=== PATIENT | female | born 1985 | race Caucasian/White ===

== ENCOUNTER 2021-07-08 20:08 | Emergency (ER) | payer MEDICAID, OTHER ==
[~2021-07-08] VITALS: Ht 160 cm; Wt 81.6 kg
[2021-07-08] MEDS: cloNIDine HCL 0.1 MG TAB PO ONE (20:29)
[2021-07-08 21:50] LABS: Basophils # (auto) 0.1 10 ^3/uL (0-0.2); Basophils % (auto) 1.2 % (0.0-2.0); Eosinophils # (auto) 0.1 10 ^3/uL (0-0.8); Eosinophils % (auto) 1.6 % (0.0-7.0); Hematocrit 44.2 % (36.0-46.0); Hemoglobin 14.2 g/dL (12.2-16.2); Lymphocytes # (auto) 2.9 10 ^3/uL (0.4-5.4); Lymphocytes % (auto) 32.9 % (10.0-50.0); Mean Corpuscular Hemoglobin 28.4 pg (28.0-32.0); Mean Corpuscular Hgb Conc. 32.2 g/dL (32.0-36.0); Mean Corpuscular Volume 88.2 fL (80.0-100.0); Monocytes # (auto) 0.8 10 ^3/uL (0-1.3); Monocytes % (auto) 8.7 % (0.0-12.0); Neutrophils # (auto) 4.9 10 ^3/uL (1.6-8.6); Neutrophils % (auto) 55.6 % (37.0-80.0); Nucleated Red Blood Cells % 0.1 %; Red Cell Distribution Width 15.4 % (11.8-14.3); White Blood Cell 8.7 10^3/uL (4.4-10.8)
[2021-07-08 22:27] LABS: BUN/Creatinine Ratio 15.3; Bilirubin, Total 0.2 mg/dL (0.2-1.0); Calcium 8.4 mg/dL (8.5-10.1); Potassium 3.7 mmol/L (3.5-5.1)
[2021-07-08 22:28] LABS: Albumin 3.4 g/dL (3.4-5.0); Magnesium 2.9 mg/dL (1.6-2.6); Total Protein 7.7 g/dL (6.4-8.2)
[2021-07-09 02:22] VITALS: BP 198/137
== END 2021-07-09 03:38 | disposition home or self-care (01) ==
LOC: ER 20:10
DX: I10 Essential (primary) hypertension (principal); R51.9 Headache, unspecified; F17.210 Nicotine dependence, cigarettes, uncomplicated; F12.10 Cannabis abuse, uncomplicated; F15.10 Other stimulant abuse, uncomplicated
CPT/HCPCS: 36415; 80053; 83735; 84484; 85025; 93005

== ENCOUNTER 2025-01-31 02:28 | Emergency (ER) | payer MEDICAID ==
[~2025-01-31] VITALS: Ht 160 cm; Wt 75.4 kg
[~2025-01-31 02:28] MED LIST: ACET500T58 PO
--- NOTE | 2025-01-31 02:45 | ED.PDOC ---
Musculoskeletal HPI Comments 39 year old female presents to ER with complaints of left leg pain x1 day. Patient reports that that a large dog ran into her left calf last night at 5:15 p.m. prior to arrival to ER and has since been experiencing pain/bruising/swelling to left upper calf. Notes that she did hit her head upon the dog bumping into her, denying any LOC. Patient currently complains of 8/10 pain localized to bruising on left calf without radiation and presents to ER ambulatory on arrival, alert and oriented x4, with steady gait, in no distress with a moderate sized hematoma noted to medial aspect of left upper calf. Denies headache, neck pain, numbness/tingling, shortness of breath or any further symptoms/complaints Time Seen by MD: 02:39 Primary Care Provider: UNKNOWN Reviewed Notes: Nurses Notes, Medications, Allergies Allergies: Coded Allergies: NO KNOWN ALLERGIES (Unverified , 07/08/21) Home Meds Active Scripts Ibuprofen (Ibuprofen) 800 Mg Tab, 1 TAB PO TID PRN, #30 TAB 0 Refills Prov:KARLA KELLY 01/31/25 Acetaminophen (Acetaminophen) 500 Mg Tab, 500 MG PO Q4HPRN, #30 TAB 0 Refills Prov:KARLA KELLY 03/26/24 Information Source: Patient Past Medical History PAST MEDICAL HISTORY: Depression, HTN, Schizophrenia Surgical History: Denies all surgeries WELDER TOOL AND DIE History: No Pertinent WELDER TOOL AND DIE History Family History Family History: Unknown Social History Smoker: Cigarettes, Less Than 1 Pack/Day Alcohol: Occasionally Drugs: Marijuana, Methamphetamine Lives In: Home Constitutional: denies: chills, diaphoresis, fatigue, fever, malaise, sweats, weakness, others EENTM: denies: blurred vision, double vision, ear bleeding, ear discharge, ear drainage, ear pain, ear ringing, eye pain, eye redness, hearing loss, mouth pain, mouth swelling, nasal discharge, nose bleeding, nose congestion, nose pain, photophobia, tearing, throat pain, throat swelling, voice changes, others Respiratory: denies: cough, hemoptysis, orthopnea, SOB at rest, shortness of breath, SOB with excertion, stridor, wheezing, others Cardiovascular: denies: chest pain, dizzy spells, diaphoresis, Dyspnea on exertion, edema, irregular heart beat, left arm pain, lightheadedness, palpitations, PND, syncope, others Gastrointestinal: denies: abdomen distended, abdominal pain, blood streaked bowels, constipated, diarrhea, dysphagia, difficulty swallowing, hematemesis, melena, nausea, poor appetite, poor fluid intake, rectal bleeding, rectal pain, vomiting, others Genitourinary: denies: abnormal vagina bleeding, burning, dyspareunia, dysuria, flank pain, frequency, hematuria, incontinence, pain, , vagina discharge, urgency, others Neurological: denies: dizziness, fainting, headache, left sided numbness, left sided weakness, numbness, paresthesia, pre-existing deficit, right sided numbness, right sided weakness, seizure, speech problems, tingling, tremors, weakness, others Musculoskeletal: denies: back pain, gout, joint pain, joint swelling, muscle pain, muscle stiffness, neck pain, others Integumetry: reports: others (As stated in HPI) Allergic/Immunocompromised: denies: Difficulty Healing, Frequent Infections, Hives, Itching, others Hematologic/Lymphatic: denies: anemia, blood clots, easy bleeding, easy bruising, swollen glands, others Endocrine: denies: excessive hunger, excessive sweating, excessive thirst, excessive urination, flushing, intolerance to cold, intolerance to heat, unexplained weight gain, unexplained weight loss, others Psychiatric: denies: anxiety, bipolar disorder, depression, hopeless, panic disorder, schizophrenia, sleepless, suicidal, others Physical Exam General Appearance: No Apparent Distress HEENT: PERRL/EOMI Neck: Full Range of Motion, Non-Tender, Normal Respiratory: Chest Non-Tender, Lungs Clear, No Accessory Muscle Use, No Respira tory Distress, Normal Breath Sounds Cardiovascular: No Murmur, No Gallop, Regular Rate/Rhythm Breast Exam: Deferred Gastrointestinal: NOT DONE Genitalia: Deferred Pelvic: Deferred Rectal: Deferred Extremities: Normal capillary refill, Normal range of motion Neurologic: Alert (GCS 15), check embosser II-XII nml as Tested, No Motor Deficits, Normal Affect, Normal Mood, No Sensory Deficits Cerebellar Function: Normal Reflexes: Normal Skin: Dry, Warm, Other (Moderate sized hematoma/TTP noted to medial aspect of left upper calf. No erythema/further skin changes noted. Pulses intact. Steady gait noted) Peripheral Pulses: 2+ femoral (R), 2+ femoral (L), 2+ dorsalis pedis (R), 2+ dorsalis pedis (L), 2+ Radial (R), 2+ Radial (L), 2+ Brachial (R), 2+ Brachial (L) Lymphatic: No Adenopathy Was a procedure done? Was a procedure done?: No Sedation Sedation?: No Differential Diagnosis EXT Differential Diagnosis: Cellulitis, Deep Vein Thrombosis, Fracture, Neurovascular injury X-Ray, Labs, Meds, VS Vital Signs Date Time Temp Pulse Resp B/P (MAP) Pulse Ox O2 Delivery O2 Flow Rate FiO2 01/31/25 02:44 97.6 102 18 140/99 (113) 98 97.6 Lab Test 01/31/25 03:01 Range/Units D-Dimer, Quantitative < 0.19 0.0-0.49 mg/L FEU Current Medications Medications (Trade) Dose Ordered Sig/Alexis Route Start Time Stop Time Status Last Admin Acetaminophen/ Hydrocodone Bitart (Mcdonald 5/325MG Tab) 1 tab ONCE ONCE PO 01/31/25 02:45 01/31/25 02:47 DC 01/31/25 04:26 Ondansetron HCl (Zofran Po) 4 mg ONCE ONCE PO 01/31/25 02:45 01/31/25 02:47 DC 01/31/25 04:26 PATIENT: EFREN PARDO NACCT: [id number]: [id number] : 1985 LOC: ER ROOM / BED: / AGE / SEX: 39 / F ADM STATUS: REG ER SERVICE ORDERING PHYSICIAN: KARLA KELLY PROCEDURE(s): LTBFB - L TIB FIB XRAY REASON: left tib-fib pain ORDER NUMBER(s): [id number], ACCESSION NUMBER(s): [id number] CLINICAL INDICATION: left tib-fib pain TECHNIQUE: XY L TIB FIB XRAY Comparison: None FINDINGS/IMPRESSION: : There is no evidence of acute fracture or dislocation. Soft tissues are unremarkable. ATED BY: TARAS ADAMS MD DICTATED DATE/TIME: 01/31/25 0354 SIGNED BY: TARAS ADAMS MD SIGNED DATE/TIME: 01/31/25 0354 CC: Left tib/fib x-ray reviewed Ice pack applied Mcdonald 5/235 mg PO ordered Zofran 4 mg PO ordered D-dimer reviewed - negative Advised on elevation and alternate ice on/off as needed for pain/swelling Advised to f/u with PCP in 1-2 days Patient verbalized understanding and agreeable with current plan of care Advised to return to ER immediately if symptoms worsen Images Reviewed?: Images reviewed and evaluated by me Time of 1ST Reevaluation: 02:52 Reevaluation 1ST: N/A Time of 2ND Reevaluation: 03:30 Reevaluation 2ND: Improved Patient Education/Counseling: Diagnosis, Treatment, Prognosis, Need For Follow Up Family Education/Counseling: No Family Present Departure 1 Departure Time of Disposition: 03:32 Impression: Primary Impression: Hematoma of left lower extremity Qualified Codes: S80.12XA - Contusion of left lower leg, initial encounter Disposition: 01 HOME / SELF CARE / HOMELESS Condition: Stable e-Prescriptions Ibuprofen (Ibuprofen) 800 Mg Tab 1 TAB PO TID PRN, #30 TAB 0 Refills Prov: KARLA KELLY 01/31/25 Discharged With: Self Critical Care Note Critical Care Time?: No Stability Stability form required: No Heart Score Heart Score: Heart Score Response (Comments) Value History N/A 0 EKG N/A 0 Age N/A 0 Risk Factors N/A 0 Troponin N/A 0 Total 0 KARLA KELLY Jan 31, 2025 02:45
[2025-01-31] MEDS ORDERED: IBUP-1456 PO (03:39)
--- NOTE | 2025-01-31 03:57 | DVH ---
CLINICAL INDICATION: left tib-fib pain TECHNIQUE: XY L TIB FIB XRAY Comparison: None FINDINGS/IMPRESSION: : There is no evidence of acute fracture or dislocation. Soft tissues are unremarkable.
[2025-01-31] MEDS: HYDROcodone-ACET 5/325MG TAB PO ONE (04:26)
[2025-01-31] MEDS: ONDANSETRON ODT 4 MG TAB PO ONE (04:26)
[2025-01-31 04:47] VITALS: BP 154/107; TEMP 98.2
[2025-01-31 04:48] VITALS: PULSE 89; RESP 18; O2SAT 95
== END 2025-01-31 04:50 | disposition home or self-care (01) ==
LOC: ER 02:28
DX: S80.12XA Contusion of left lower leg, initial encounter (principal); I10 Essential (primary) hypertension; F20.9 Schizophrenia, unspecified; F17.210 Nicotine dependence, cigarettes, uncomplicated; F32.A Depression, unspecified; W54.1XXA Struck by dog, initial encounter; Y93.89 Activity, other specified; Y92.89 Other specified places as the place of occurrence of the external cause; Y99.8 Other external cause status
CPT/HCPCS: 36415; 73590; 85379; 99284; Q0162

== ENCOUNTER 2025-02-01 | Emergency (ER) | payer MEDICAID ==
[~2025-02-01] VITALS: Ht 160 cm; Wt 75.4 kg
[~2025-02-01] MED LIST changes: +IBUP-1456 PO
[2025-02-01 00:43] VITALS: BP 147/98; PULSE 106; RESP 14; TEMP 97.8; O2SAT 98
--- NOTE | 2025-02-01 01:05 | ED.PDOC ---
Musculoskeletal HPI Comments 39-year-old female came to ER for left leg pain. Patient was seen here yesterday, diagnosed with a hematoma of the left lower leg after being head- butted by a large dog. Patient's sent home with ibuprofen after diagnostics showed contribute results. Noted worsening of hematoma of the left lower leg, medial aspect, associated with skin tightness. Chief Complaint: Lower Extremity Time Seen by MD: 01:04 Primary Care Provider: UNKNOWN Reviewed Notes: Nurses Notes Allergies: Coded Allergies: NO KNOWN ALLERGIES (Unverified , 07/08/21) Home Meds Active Scripts Ibuprofen (Ibuprofen) 800 Mg Tab, 1 TAB PO TID PRN, #30 TAB 0 Refills Prov:KARLA KELLY 01/31/25 Acetaminophen (Acetaminophen) 500 Mg Tab, 500 MG PO Q4HPRN, #30 TAB 0 Refills Prov:KARLA KELLY 03/26/24 Information Source: Patient Mode of Arrival: Ambulatory Location: Left Extremity Location: Leg Timing: Hours Prehospital treatment: None Severity: Moderate Able to Move Extremity: Yes Bear Weight: Limited Pain: Moderate Mechanism: Blunt Trauma Circumstances: Accident Onset of Symptoms: After Trauma Symptoms: Swelling, Pain DVT Risk Factors: NONE Associated signs and symptoms: Leg pain (Left) Past Medical History PAST MEDICAL HISTORY: Depression, HTN, Schizophrenia Surgical History: Denies all surgeries SCREWDOWN OPERATOR History: No Pertinent SCREWDOWN OPERATOR History Family History Family History: Unknown Social History Smoker: Cigarettes, Less Than 1 Pack/Day Alcohol: Occasionally Drugs: Marijuana, Methamphetamine Lives In: Home Constitutional: denies: chills, diaphoresis, fatigue, fever, malaise, sweats, weakness, others EENTM: denies: blurred vision, double vision, ear bleeding, ear discharge, ear drainage, ear pain, ear ringing, eye pain, eye redness, hearing loss, mouth pain, mouth swelling, nasal discharge, nose bleeding, nose congestion, nose pain, photophobia, tearing, throat pain, throat swelling, voice changes, others Respiratory: denies: cough, hemoptysis, orthopnea, SOB at rest, shortness of breath, SOB with excertion, stridor, wheezing, others Cardiovascular: denies: chest pain, dizzy spells, diaphoresis, Dyspnea on exertion, edema, irregular heart beat, left arm pain, lightheadedness, palpitations, PND, syncope, others Gastrointestinal: denies: abdomen distended, abdominal pain, blood streaked bowels, constipated, diarrhea, dysphagia, difficulty swallowing, hematemesis, melena, nausea, poor appetite, poor fluid intake, rectal bleeding, rectal pain, vomiting, others Genitourinary: denies: abnormal vagina bleeding, burning, dyspareunia, dysuria, flank pain, frequency, hematuria, incontinence, pain, , vagina discharge, urgency, others Neurological: denies: dizziness, fainting, headache, left sided numbness, left sided weakness, numbness, paresthesia, pre-existing deficit, right sided numbne ss, right sided weakness, seizure, speech problems, tingling, tremors, weakness, others Musculoskeletal: denies: back pain, gout, joint pain, joint swelling, muscle pain, muscle stiffness, neck pain, others Integumetry: reports: bruises (Left lower leg); denies: change in color, change in hair/nails, dryness, laceration, lesions, lumps, rash, wounds, others Allergic/Immunocompromised: denies: Difficulty Healing, Frequent Infections, Hives, Itching, others Hematologic/Lymphatic: denies: anemia, blood clots, easy bleeding, easy bruising, swollen glands, others Endocrine: denies: excessive hunger, excessive sweating, excessive thirst, excessive urination, flushing, intolerance to cold, intolerance to heat, unexplained weight gain, unexplained weight loss, others Psychiatric: denies: anxiety, bipolar disorder, depression, hopeless, panic disorder, schizophrenia, sleepless, suicidal, others Physical Exam General Appearance: Mild Distress (Moderate distress due to left lower leg concerns. Patient declined any pain medication while at the facility.), Normal HEENT: Normal ENT Inspection, Pharynx Normal, TMs Normal Neck: Full Range of Motion, Non-Tender, Normal, Normal Inspection Respiratory: Chest Non-Tender, Lungs Clear, No Accessory Muscle Use, No Respiratory Distress, Normal Breath Sounds Cardiovascular: No Edema, No JVD, No Murmur, No Gallop, Normal Peripheral Pulses, Regular Rate/Rhythm Breast Exam: Deferred Gastrointestinal: No Organomegaly, Non Tender, No Pulsatile Mass, Normal Bowel Sounds, Soft Genitalia: Deferred Pelvic: Deferred Rectal: Deferred Extremities: Other (Patient displays extensive ecchymotic hematoma to the medial aspect of the left lower extremity. Significant edema noted. Distal neurovascularly intact.) Musculoskeletal : Apperance: Normal Neurologic: Alert, No Motor Deficits, Normal Affect, Normal Mood, No Sensory Deficits Cerebellar Function: Normal Reflexes: Normal Skin: Dry, Normal Color, Warm Lymphatic: No Adenopathy Was a procedure done? Was a procedure done?: No Differential Diagnosis EXT Differential Diagnosis: Deep Vein Thrombosis, Compartment Syndrome, Contusion, Other (Hematoma) X-Ray, Labs, Meds, VS Vital Signs Date Time Temp Pulse Resp B/P (MAP) Pulse Ox O2 Delivery O2 Flow Rate FiO2 02/01/25 00:43 97.8 106 14 147/98 (114) 98 97.8 X-Ray, Labs, Meds, VS Comment All studies performed the ED were evaluated by me personally. Doppler studies were unremarkable for any DVT formation. Patient has a large hematoma due to the medial left leg trauma. Advised patient continue with medication as needed for pain relief and follow up with the primary care provider in the next few days for re-evaluation. Time of 1ST Reevaluation: 01:58 Reevaluation 1ST: Unchanged Consultation: PCP Patient Education/Counseling: Diagnosis, Treatment Family Education/Counseling: Diagnosis, Treatment, No Family Present Sepsis Recent Procedure: No On Antibiotic Therapy: No Respiratory Rate >20: No Heart Rate >90: Yes Temp<36 C (96.8 F) or >38.3 C: No SBP <90 or MAP <65 mmHG: No New Acute Mental Status Change: No Is the patient on CPAP, BIPAP,: No IV fluid given: No Departure 1 Departure Time of Disposition: 01:59 Impression: Primary Impression: Hematoma of left lower extremity Disposition: 01 HOME / SELF CARE / HOMELESS Condition: Stable Additional Instructions: Advised patient she continued to utilize pain medication as needed for symptomatic relief. Patient should follow up with the primary care provider in the next few days for re-evaluation. Discharged With: Self, Friend Critical Care Note Critical Care Time?: No Stability Stability form required: No Heart Score Heart Score: Heart Score Response (Comments) Value History N/A 0 EKG N/A 0 Age N/A 0 Risk Factors N/A 0 Troponin N/A 0 Total 0 I personally scribed for REDDY VAUGHN PAC ([email or web address]) on 02/01/25 at 01:05. Electronically submitted by Bernard Tolbert ([facility]). REDDY VAUGHN [facility] Feb 01, 2025 01:05
--- NOTE | 2025-02-01 01:45 | DVH ---
LEFT LOWER EXTREMITY VENOUS DOPPLER ULTRASOUND CLINICAL HISTORY: DVT rule out. History of trauma. COMPARISON: Left lower extremity radiographs obtained earlier the same day. TECHNIQUE: Grayscale ultrasound with compression, Color Doppler flow and duplex spectral Doppler son ography of the left lower extremity femoral popliteal deep venous system is performed. FINDINGS: Left common femoral vein: Negative. Left greater saphenous vein: Negative. Left femoral vein: Negative. Left popliteal vein: Negative. Other: Complex collection in the subcutaneous tissues of the medial calf measuring approximately 5.7 x 2.8 x 5.4 cm. No appreciable internal blood flow. IMPRESSION: No sonographic evidence of deep venous thrombosis in the left lower extremity at this time. Given the history of trauma, a complex collection in the medial left calf most likely represents a he matoma. Recommend follow-up to resolution. HS:Y
== END 2025-02-01 02:54 | disposition home or self-care (01) ==
LOC: ER
DX: S80.12XD Contusion of left lower leg, subsequent encounter (principal); I10 Essential (primary) hypertension; F17.210 Nicotine dependence, cigarettes, uncomplicated; F10.90 Alcohol use, unspecified, uncomplicated; F12.90 Cannabis use, unspecified, uncomplicated; F19.90 Other psychoactive substance use, unspecified, uncomplicated; F20.9 Schizophrenia, unspecified; F32.A Depression, unspecified; Z79.899 Other long term (current) drug therapy; W54.8XXD Other contact with dog, subsequent encounter; Y90.9 Presence of alcohol in blood, level not specified
CPT/HCPCS: 93971